=== PATIENT | female | born 1970 | race American Indian/Alaskan Native ===

== ENCOUNTER 2017-09-02 13:58 | Emergency (ER) | payer SELFPAY ==
[2017-09-02 14:41] VITALS: BMI 25.9
[2017-09-02 14:49] VITALS: BP 133/91; PULSE 89; RESP 18; TEMP 98.1; O2SAT 99
--- NOTE | 2017-09-02 15:42 | C.PDOC ---
History Of Present Illness 46 year old female presents to the ER initially requesting detox from polysubstances, however, upon being told there are no detox beds patient immediately reports hearing voices for the past week. Patient states this has never happened before, she feels depressed, notes she has not taken paxil in the past few days. Denies homicidal ideation, suicidal ideation, or physical complaints. Time Seen by Provider: 09/02/17 14:51 Chief Complaint (Nursing): Substance Abuse History Per: Patient History/Exam Limitations: no limitations Onset/Duration Of Symptoms: Days Current Symptoms Are (Timing): Still Present Suicide/Self Injury Attempted (Context): None Associated Symptoms: denies: Depression, Suicidal Thoughts, Other (Homicidal ideation) Involuntary Hold By: None Recent travel outside of the [place]: No Past Medical History Reviewed: Historical Data, Nursing Documentation, Vital Signs Vital Signs: Last Vital Signs Temp 98.1 F 09/02/17 14:44 Pulse 89 09/02/17 14:44 Resp 18 09/02/17 14:44 BP 133/91 H 09/02/17 14:44 Pulse Ox 99 09/02/17 16:43 - Medical History PMH: Anxiety, Depression Family History: States: Unknown Family Hx - Social History Hx Alcohol Use: Yes Hx Substance Use: No - Immunization History Hx Tetanus Toxoid Vaccination: No Hx Influenza Vaccination: No Hx Pneumococcal Vaccination: No Review Of Systems Constitutional: Negative for: Fever, Chills Gastrointestinal: Negative for: Nausea, Vomiting, Diarrhea Psych: Positive for: Depression, Other ((+) Hearing voices (-) Homicidal ideation). Negative for: Suicidal ideation Physical Exam - Physical Exam Appears: Non-toxic, No Acute Distress Skin: Normal Color, Warm, Dry Head: Atraumatic, Normacephalic Eye(s): bilateral: Normal Inspection Oral Mucosa: Moist Chest: Symmetrical, No Tenderness Cardiovascular: Rhythm Regular Respiratory: Normal Breath Sounds, No Rales, No Rhonchi, No Wheezing Gastrointestinal/Abdominal: Soft, No Tenderness Neurological/Psych: Oriented x3, Normal Speech ED Course And Treatment O2 Sat by Pulse Oximetry: 99 (Room air) Pulse Ox Interpretation: Normal Medical Decision Making Medical Decision Making: Crisis notified. Pt seen by Elyse from crisis. pt immediately asking for sandwich. pt cleared for discharge by crisis team. pt eloped from room after food was given. Disposition - Disposition Disposition: ELOPEMENT - ER ONLY Disposition Time: 15:25 Condition: STABLE Forms: [facility] (Yi) - Clinical Impression Clinical Impression: Polysubstance abuse - PA / NEGATIVE CLEANER / Resident Statement MD/DO has reviewed & agrees with the documentation as recorded. - Scribe Statement The provider has reviewed the documentation as recorded by the Scribe Sami Renteria All medical record entries made by the Scribe were at my direction and personally dictated by me. I have reviewed the chart and agree that the record accurately reflects my personal performance of the history, physical exam, medical decision making, and the department course for this patient. I have also personally directed, reviewed, and agree with the discharge instructions and disposition.
== END 2017-09-02 15:00 | disposition left against medical advice (07) ==
LOC: C.ER 13:58
DX: F19.10 Other psychoactive substance abuse, uncomplicated (principal)